=== PATIENT | female | born 1940 | race Two or more races ===

== ENCOUNTER 2025-02-24 15:49 | Emergency (ER) | payer OTHER ==
[~2025-02-24] VITALS: Ht 154.9 cm; Wt 50.0 kg
[2025-02-24 16:10] VITALS: PULSE 75; RESP 18; O2SAT 96
--- NOTE | 2025-02-24 16:10 | ED.PDOC ---
History of Present Illness HPI Comments 85M BIBA w/ prior MHx of chronic UTI, and the c/c of a wound check. EMS report on the home nurse visiting the home and noticing wounds which prompted her to call EMS. Pt has been dealing w/ severe UTI's since September of this year. Pt has decubitus sores on the bilateral foot and a 4x6 wound to sacrum depth unme asurable.Denies any other symptoms at this time. Denies chills, fever, N/V/D, SOB, CP. Denies any other associated symptom's, modifiers, or recent injuries or sick contact at this time. Chief Complaint: Wound Check Time Seen by MD: 16:00 Reviewed Notes: Nurses Notes, Medications, Allergies Allergies: Coded Allergies: NO KNOWN ALLERGIES (Unverified , 02/24/25) Information Source: Patient Mode of Arrival: EMS Severity: Moderate Timing: Came on: Gradually Duration: Since onset Prehospital treatment: None Past Medical History PAST MEDICAL HISTORY: UTI'S Surgical History: Denies all surgeries Family History Family History: Reviewed,noncontributory to illness, Unknown Social History Smoker: Non-Smoker Alcohol: Denies ETOH Use Drugs: Denies Drug Use Lives In: Home Constitutional: denies: chills, diaphoresis, fatigue, fever, malaise, sweats, weakness, others EENTM: denies: blurred vision, double vision, ear bleeding, ear discharge, ear drainage, ear pain, ear ringing, eye pain, eye redness, hearing loss, mouth pain, mouth swelling, nasal discharge, nose bleeding, nose congestion, nose pain, photophobia, tearing, throat pain, throat swelling, voice changes, others Respiratory: denies: cough, hemoptysis, orthopnea, SOB at rest, shortness of breath, SOB with excertion, stridor, wheezing, others Cardiovascular: denies: chest pain, dizzy spells, diaphoresis, Dyspnea on exertion, edema, irregular heart beat, left arm pain, lightheadedness, palpitations, PND, syncope, others Gastrointestinal: denies: abdomen distended, abdominal pain, blood streaked bowels, constipated, diarrhea, dysphagia, difficulty swallowing, hematemesis, melena, nausea, poor appetite, poor fluid intake, rectal bleeding, rectal pain, vomiting, others Genitourinary: denies: burning, dysuria, flank pain, frequency, hematuria, incontinence, penile discharge, penile sore, pain, testicle pain, testicle swelling, urgency, others Neurological: denies: dizziness, fainting, headache, left sided numbness, left sided weakness, numbness, paresthesia, pre-existing deficit, right sided numbness, right sided weakness, seizure, speech problems, tingling, tremors, weakness, others Musculoskeletal: denies: back pain, gout, joint pain, joint swelling, muscle pain, muscle stiffness, neck pain, others Integumetry: reports: wounds (decubitus sores on the bilateral foot and a 4x6 wound to sacrum depth unmeasurable.); denies: bruises, change in color, change in hair/nails, dryness, laceration, lesions, lumps, rash Allergic/Immunocompromised: denies: Difficulty Healing, Frequent Infections, Hives, Itching, others Hematologic/Lymphatic: denies: anemia, blood clots, easy bleeding, easy bruising, swollen glands, others Endocrine: denies: excessive hunger, excessive sweating, excessive thirst, excessive urination, flushing, intolerance to cold, intolerance to heat, unexplained weight gain, unexplained weight loss, others Psychiatric: denies: anxiety, bipolar disorder, depression, hopeless, panic disorder, schizophrenia, sleepless, suicidal, others All Other Systems: Reviewed and Negative Physical Exam Exam Comments decubitus sores on the bilateral foot and a 4x6 wound to sacrum depth unmeasurable. General Appearance: No Apparent Distress, Normal HEENT: Normal ENT Inspection, Pharynx Normal, TMs Normal Neck: Full Range of Motion, Non-Tender, Normal, Normal Inspection Respiratory: Chest Non-Tender, Lungs Clear, No Accessory Muscle Use, No Respiratory Distress, Normal Breath Sounds Cardiovascular: No Edema, No JVD, No Murmur, No Gallop, Normal Peripheral Pulses, Regular Rate/Rhythm Breast Exam: Deferred Gastrointestinal: No Organomegaly, Non Tender, No Pulsatile Mass, Normal Bowel Sounds, Soft Genitalia: Deferred Pelvic: Deferred Rectal: Deferred Extremities: No calf tenderness, Normal capillary refill, Normal inspection, Normal range of motion, Non-tender, No pedal edema Musculoskeletal : Apperance: Normal Neurologic: Alert, gas analyst II-XII nml as Tested, No Motor Deficits, Normal Affect, Normal Mood, No Sensory Deficits Cerebellar Function: Normal Reflexes: Normal Skin: Dry, Normal Color, Warm Lymphatic: No Adenopathy Was a procedure done? Was a procedure done?: No Differential Dx Considerations may include: Sepsis, CVA, UTI, decubitus ulcers, cellulitis X-Ray, Labs, Meds, VS Vital Signs Date Time Temp Pulse Resp B/P (MAP) Pulse Ox O2 Delivery O2 Flow Rate FiO2 02/24/25 18:00 61 15 141/49 (79) 95 02/24/25 17:33 56 02/24/25 17:00 60 15 125/47 02/24/25 16:19 75 18 124/55 02/24/25 16:10 75 18 96 Room Air* 0 21 02/24/25 16:10 97.9 75 18 124/55 (78) 96 97.9 02/24/25 15:53 98.4 78 16 132/59 97 98.4 02/24/25 15:50 77 Lab Test 02/24/25 16:57 02/24/25 16:46 Range/Units White Blood Count 9.3 4.4-10.8 10^3/uL Red Blood Count 3.39 L 4.5-5.90 10^6/uL Hemoglobin 10.0 L 13.5-17.5 g/dL Hematocrit 30.3 L 41.0-53.0 % Mean Corpuscular Volume 89.2 80.0-100.0 fL Mean Corpuscular Hemoglobin 29.6 28.0-32.0 pg Mean Corpuscular Hemoglobin Concent 33.1 32.0-36.0 g/dL Red Cell Distribution Width 14.6 H 11.8-14.3 % Platelet Count 221 140-450 10^3/uL Mean Platelet Volume 8.8 6.9-10.8 fL Neutrophils (%) (Auto) 77.5 37.0-80.0 % Lymphocytes (%) (Auto) 13.0 10.0-50.0 % Monocytes (%) (Auto) 5.1 0.0-12.0 % Eosinophils (%) (Auto) 3.5 0.0-7.0 % Basophils (%) (Auto) 0.9 0.0-2.0 % Neutrophils # (Auto) 7.2 1.6-8.6 10 ^3/uL Lymphocytes # (Auto) 1.2 0.4-5.4 10 ^3/uL Monocytes # (Auto) 0.5 0-1.3 10 ^3/uL Eosinophils # (Auto) 0.3 0-0.8 10 ^3/uL Basophils # (Auto) 0.1 0-0.2 10 ^3/uL Nucleated Red Blood Cells 0.0 % Sodium Level 141 136-145 mmol/L Potassium Level 3.7 3.5-5.1 mmol/L Chloride Level 106 98-107 mmol/L Carbon Dioxide Level 26 20-31 mmol/L Anion Gap 9 5-15 Blood Urea Nitrogen 20 9-23 mg/dL Creatinine 0.87 0.700-1.30 mg/dL Glomerular Filtration Rate Calc 86 >90 mL/min BUN/Creatinine Ratio 23.0 H 10.0-20.0 Serum Glucose 119 H 74-106 mg/dL Lactic Acid Level 0.8 0.4-2.0 mmol/L Calcium Level 9.0 8.7-10.4 mg/dL Total Bilirubin 0.5 0.2-1.0 mg/dL Aspartate Amino Transferase (AST) 16 13-40 U/L Alanine Aminotransferase (ALT) 12 7-40 U/L Alkaline Phosphatase 85 46-116 U/L Total Protein 6.3 5.7-8.2 g/dL Albumin 3.7 3.2-4.8 g/dL Urine Color Colorless Yellow Urine Clarity Turbid H Clear Urine pH 6.0 5.0-9.0 Urine Specific [place] 1.017 1.001-1.035 Urine Protein 1+ H Negative Urine Ketones Trace Negative Urine Blood Trace H Negative /uL Urine Nitrite Negative Negative Urine Bilirubin Negative Negative Urine Urobilinogen 3 H Negative mg/dL Urine Leukocyte Esterase Negative Negative /uL Urine RBC 9 0 - 3 /hpf Urine Microscopic WBC 26 H 0-3 /HPF Urine Squamous Epithelial Cells Mod <5 /hpf Urine Bacteria Many H None Seen /hpf Urine Glucose Normal Normal mg/dL Current Medications Medications (Trade) Dose Ordered Sig/Tej Route Start Time Stop Time Status Last Admin Hydromorphone HCl (Dilaudid Injection) 0.25 mg ONCE ONCE IV 02/24/25 16:15 02/24/25 16:16 DC 02/24/25 16:19 Sodium Chloride 500 ml @ 500 mls/hr Q1H ONCE IV 02/24/25 18:15 10/27/25 19:14 DC 02/24/25 18:09 Ceftriaxone Sodium 50 ml @ 100 mls/hr ONCE ONCE IV 02/24/25 18:15 02/24/25 18:44 DC 02/24/25 18:09 X-Ray, Labs, Meds, VS Comment Spoke with Dr. Quijano at [facility], due to concerns of being ill take care of the patient at home, patient will be admitted. Possibility of fpc facility placement. Pending call back for transfer location. Patient hemodynamically stable Patient be started on Rocephin 1 g Time of 1ST Reevaluation: 16:30 Reevaluation 1ST: Unchanged Patient Education/Counseling: Diagnosis, Treatment, Prognosis Family Education/Counseling: No Family Present SEPSIS Sepsis Screen Date sepsis recognized/suspect: Feb 24, 2025 Time Sepsis recognized/suspect: 1558 Recent Procedure: No On Antibiotic Therapy: No Respiratory Rate >20: No Heart Rate >90: No Temp<36 C (96.8 F) or >38.3 C: No SBP <90 or MAP <65 mmHG: No New Acute Mental Status Change: No Is the patient on CPAP, BIPAP,: No Physician Orders Blood Culture (02/24/25 16:08) Serrano Catheters (02/24/25 ) Head Without Contrast (02/24/25 18:50) Vital Signs Date Time Temp Pulse Resp B/P (MAP) Pulse Ox O2 Delivery O2 Flow Rate FiO2 02/24/25 18:00 61 15 141/49 (79) 95 02/24/25 17:33 56 02/24/25 17:00 60 15 125/47 02/24/25 16:19 75 18 124/55 02/24/25 16:10 75 18 96 Room Air* 0 21 02/24/25 16:10 97.9 75 18 124/55 (78) 96 97.9 02/24/25 15:53 98.4 78 16 132/59 97 98.4 02/24/25 15:50 77 Laboratory Tests Test 02/24/25 16:57 Lactic Acid Level 0.8 mmol/L (0.4-2.0) White Blood Count 9.3 10^3/uL (4.4-10.8) Medications Medications Dose Ordered Sig/Tej Route Start Time Stop Time Status Last Admin Dose Admin Ceftriaxone Sodium 50 ml @ 100 mls/hr ONCE ONCE IV 02/24/25 18:15 02/24/25 18:44 DC 02/24/25 18:09 Hydromorphone HCl 0.25 mg ONCE ONCE IV 02/24/25 16:15 02/24/25 16:16 DC 02/24/25 16:19 Sodium Chloride 500 ml @ 500 mls/hr Q1H ONCE IV 02/24/25 18:15 02/24/25 19:14 DC 02/24/25 18:09 Departure 1 Departure Time of Disposition: 19:29 Impression: Primary Impression: Decubitus ulcer Qualified Codes: L89.153 - Pressure ulcer of sacral region, stage 3 Additional Impression: Urinary tract infection Qualified Codes: N30.01 - Acute cystitis with hematuria Disposition: 02 SHORT TERM HOSPITAL Condition: Stable Critical Care Note Critical Care Time?: No Stability Stability form required: No Heart Score Heart Score: Heart Score Response (Comments) Value History N/A 0 EKG N/A 0 Age N/A 0 Risk Factors N/A 0 Troponin N/A 0 Total 0 I personally scribed for ДМИТРИЙ SPENCER ([email or web address]) on 02/24/25 at 16:10. Electronically submitted by Yang Felix ([email or web address]). ДМИТРИЙ SPENCER Feb 24, 2025 16:10
[2025-02-24] MEDS: HYDROmorphone HCL 2 MG/ML VL/or syr IV ONE (16:19)
--- NOTE | 2025-02-24 16:59 | ECG ---
[facility] Test Date: 2025-02-24 Test Time: 15:50:27 Pat Name: YESIKA CHANG Department: [facility] ED Patient ID: [id number] Room: Gender: M Finished Cloth Examiner: chani : 1940 Requested By: ДМИТРИЙ SPENCER Order Number: [id number] Reading MD: Measurements Intervals [place] Rate: 77 P: 86 MO: 121 QRS: 41 QRSD: 87 T: 43 QT: 416 QTc: 471 Interpretive Statements Sinus rhythm Borderline low voltage, extremity leads ST elevation, consider inferior injury Please click the below link to view image of tracing.
[2025-02-24 17:08] LABS: Hematocrit 30.3 % (41.0-53.0); Hemoglobin 10.0 g/dL (13.5-17.5); Mean Corpuscular Hemoglobin 29.6 pg (28.0-32.0); Mean Corpuscular Volume 89.2 fL (80.0-100.0); Nucleated Red Blood Cells % 0.0 %
[2025-02-24 17:26] LABS: Alanine Aminotransferase 12 U/L (7-40); Albumin 3.7 g/dL (3.2-4.8); Alkaline Phosphatase 85 U/L (46-116); Anion Gap 9 (5-15); BUN/Creatinine Ratio 23.0 (10.0-20.0); Bilirubin, Total 0.5 mg/dL (0.2-1.0); Blood Urea Nitrogen 20 mg/dL (9-23); Calcium 9.0 mg/dL (8.7-10.4); Carbon Dioxide 26 mmol/L (20-31); Chloride 106 mmol/L (98-107); Potassium 3.7 mmol/L (3.5-5.1); Sodium 141 mmol/L (136-145); Total Protein 6.3 g/dL (5.7-8.2)
[2025-02-24 17:33] LABS: Urine Protein, UAD 1+ (Negative)
[2025-02-24 17:39] LABS: Glucose 119 mg/dL (74-106)
[2025-02-24] MEDS: SODIUM CHLORIDE 0.9% 500 ML IV ONE (18:09)
[2025-02-24 19:25] VITALS: PULSE 64; RESP 15; O2SAT 99
--- NOTE | 2025-02-24 20:05 | DVH ---
EXAM: CT HEAD WITHOUT CONTRAST INDICATION: altered TECHNIQUE: CT of the head without intravenous contrast. Radiation Dose : 1. Head: CT Dose: CTDI volume is 50.44 mGy. Dose-length product is 909.68 mGy*cm The dose indicators for CT are the volume Computed Tomography (CT) Dose Index (CTDIvol) and the Dose Length Product (DLP), and are measured in units of mGy and mGy-cm, respectively. These indicators are not patient dose, but values generated from the CT scanner acquisition factors. The report includes radiation exposure data for exposures received during this examination. COMPARISON: None FINDINGS: Brain: No acute hemorrhage, mass effect, or cerebral edema. [place] periventricular white-matter h ypodensities with global parenchymal volume loss. Senescent basal ganglia calcifications. Superior le ft frontoparietal encephalomalacia. CSF Spaces: Moderate symmetric enlargement of CSF spaces. Acute callosal angle. Bones/Soft Tissues: No acute findings. Orbits/Sinuses/Mastoids: No acute findings. Bilateral lens replacements. IMPRESSION: 1. No acute intracranial abnormality. 2. 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 Radiation optimization: All CT scans at this facility use at least one of these dose optimization smiley hniques: automated exposure control mA and/or kV adjustment per patient size (includes targeted exam s where dose is matched to clinical indication) or iterative reconstruction.
[2025-02-24 20:11] VITALS: BP 165/42; PULSE 61; RESP 15; TEMP 98.8; O2SAT 98
== END 2025-02-24 20:03 | disposition short-term general hospital (02) ==
LOC: EDBD 15:49 → ER 15:49 → EDSEX 15:49 → ER 20:03
DX: L89.899 Pressure ulcer of other site, unspecified stage (principal); N39.0 Urinary tract infection, site not specified; Z79.899 Other long term (current) drug therapy
CPT/HCPCS: 36415; 51702; 70450; 80053; 81001; 82947; 83605; 85025; 87040; 93005; 96365; 96375; 99285; J0696; J1171; 87076; 87077; 87186